=== PATIENT | female | born 1975 | race Hispanic/Latino ===

== ENCOUNTER 2016-11-03 06:07 | Day surgery (SDC) | payer OTHER ==
[2016-11-03] VITALS (13 sets, daily range): BP systolic 109–133; BP diastolic 64–94; PULSE 91–109; RESP 14–24; O2SAT 93–100
[~2016-11-03] VITALS: Ht 162.6 cm; Wt 95.5 kg
[2016-11-03] MEDS: Lactated Ringer's 1,000 ML IV SCH ×4 (05:00→23:06)
[2016-11-03] MEDS: Phenazopyridine 97.5 mg Tablet PO SCH ×2 (06:00→06:59)
[~2016-11-03 06:07] MED LIST: CeFAZolin Inj 2 GM in IV Premix 1 EACH IV SCH; LISI10TA PO; NITR100 PO
[2016-11-03] MEDS ORDERED: Dexamethasone 4 mg/mL Inj ONE (06:08)
[2016-11-03] MEDS ORDERED: Ondansetron 2 mg/mL 2 mL Inj ONE (06:08)
[2016-11-03] MEDS ORDERED: Propofol 10,000 mCg/mL 20 mL Inj ONE (06:08)
[2016-11-03] MEDS ORDERED: MetoCLOpramide 5 mg/mL 2 mL Inj ONE (06:08)
[2016-11-03] MEDS ORDERED: Rocuronium 10 mg/mL 5 mL Inj ONE (06:08)
[2016-11-03] MEDS ORDERED: Morphine PF 1 mg/mL 10 mL Inj ONE (06:08)
[2016-11-03] MEDS ORDERED: Bupiv-Spinal 0.75%/Dex 8.25% 2 mL Inj ONE (06:08)
[2016-11-03] MEDS ORDERED: Lactated Ringer's 1,000 ML IV ONE (06:46)
--- NOTE | 2016-11-03 07:16 | PCM.HPANE ---
Patient Data Surgeon Admitting Provider: Attending Provider:Ruben Butler MD Primary Care Physician:[facility] Other Provider:Konrad Reveles Anesthesia Reason for Visit Incomplete Uterovaginal Prolapse, Cystocele Ht/WT & BMI Height (Feet): 5 Height (Inches): 4.00 Weight (Kilograms): 95.254 Body Mass Index 35.00 Allergies Coded Allergies: No Known Allergies (Unverified , 11/02/16) Past Anesthesia History Anesthesia History: Denies:: Anesthesia Reactions Diabetes History Hx Diabetes?: No MRSA MRSA: No Medications Hypertension Medication: Yes Home Meds Incl Beta Dusty: No Reported Medications Lisinopril 10 Mg [id number] Mg PO DAILY 30 Days Ref 0 11/02/16 Discontinued Reported Medications Nitrofurantoin Monohyd/M-Cryst (MacroBid)100 Mg [id number] Mg PO HS Ref 0 X 2 DAYS 11/02/16 History History of ENT Problems?: No Hx of Heart Problems?: No Cardiovascular History: Positive for:: Hypertension Denies:: Heart Murmur Hx of Respiratory Problem?: Yes Respiratory History: Positive for:: Cough (SLIGHT) Dyspnea (INTERMITTANT) Denies:: Use of C-PAP Machine Hx Neurologic Problems?: Yes Hx of GI Problems?: No Hx of Problems?: Yes Female Hx: Denies:: Currently Skin History: Denies:: History Skin Disorders? Pressure Ulcers Hx Musculoskeletal Problems?: No Hx of Psycho/Social Problems?: No Hx Surgeries?: Yes (BTL,C/S) Hx Any Other Health Problems?: Yes Other History: Denies:: Cancer Endocrine Disease Hospitalization Thyroid Disease Hx Diabetes: No Hx Alcohol Use: Yes (RARELY)Have You Smoked inLast 12 mo: No Stop/Bang Treated for Sleep Apnea?: No Do You Have a CPAP Machine?: No S-Snoring: Do You Snore Loudly: No T-Tired: feel tired, fatigued: Yes O-Obsered: Observed not breath: No P-Blood Pressure: treated: Yes B- Body Mass Index > 35 kg/m2: Yes A- Age over 50: No N- Neck Large Circumference: No G- Gender Male: No JOVI Total Score: 3 JOVI Risk Assessment: Low Risk, <3 Yes Risk Assessment Category Category 1A: Patient has history of documented sleep apnea, and HAS NOT received any narcotic, sedative or anesthesia administration during this stay. Category 1B: Patient has history of documented sleep apnea, and HAS received any narcotic , sedative or anesthesia administration during this stay Category 2: Patient has SUSPECTED Obstructive Sleep Apnea, and HAS received any narcotic , sedative or anesthesia administration during this stay. Category 3: Patient has SUSPECTED Obstructive Sleep Apnea and HAS NOT received narcotic, sedative or anesthesia administration during this stay. Category 4: Outpatient in Procedural Areas with known sleep apnea or who screen positive for High Risk via the STOP/BANG questionnaire. Exam Exam Vital Signs Vital Signs Date Time Temp Pulse Resp B/P Pulse Ox O2 Delivery O2 Flow Rate FiO2 11/03/16 06:48 36.2 91 14 133/94 98 Room Air General Appearance: Oriented X3 HEENT/AIRWAY: MP 2 Lungs: Normal Air Movement Heart: Regular Rate/Rhythm Meds/Labs/Diagnostics Admission Meds Current Medications Phenazopyridine HCl 2 tab 2 tab PREOP PO Last administered on 11/03/16 06:59; Start 11/03/16 at 06:00; Stop 11/03/16 at 17:00 Lactated Ringer's (Lr) 1,000 ml @ ud STK-MED ONCE IV Last administered on 11/03 06:46; Start 11/03/16 at 06:46; Stop 11/03/16 at 06:47; Status DC Plan Impression Patient chart reviewed, patient interviewed and anesthestic plan with risks, benefits, and alternatives discussed, and informed consent obtained. NPO Status: 11/02@1600, WATER W RX ASA Physical Status: ASA2 Mod Systemic Disease Anesthetic Plan: GA, SAB Bene/Risks/Altern/Consents: Yes HP Complete Prior to Induction: Yes Bi Lu MD Nov 03, 2016 07:16
[2016-11-03] MEDS ORDERED: Lactated Ringer's 500 ML IV PRN (07:43)
[2016-11-03] MEDS ORDERED: Lactated Ringer's 1,000 ML IV SCH (07:43)
[2016-11-03] MEDS ORDERED: Labetalol 5 mg/mL 4 mL Inj IV PRN (07:45)
[2016-11-03] MEDS ORDERED: Phenylephrine 10,000 mCg/mL Inj IVPUSH PRN (07:45)
[2016-11-03] MEDS ORDERED: EPHEDrine Sulfate 50 mg/mL Inj IVPUSH PRN (07:45)
[2016-11-03] MEDS ORDERED: Dexamethasone 4 mg/mL Inj IVPUSH PRN (07:45)
[2016-11-03] MEDS ORDERED: HYDROmorphone 1 mg/mL Inj IVPUSH PRN (07:45)
[2016-11-03] MEDS ORDERED: MetoCLOpramide 5 mg/mL 2 mL Inj IVPUSH PRN ×2 (07:45→12:35)
[2016-11-03] MEDS ORDERED: Ondansetron 2 mg/mL 2 mL Inj IVPUSH PRN ×2 (07:45→12:35)
[2016-11-03] MEDS ORDERED: fentaNYL-PF 50 mCg/mL 2 mL Inj IVPUSH PRN (07:45)
[2016-11-03] MEDS ORDERED: Lidocaine 1%/Epi 1:100,000 30 mL MDV INFIL ONE (08:00)
[2016-11-03] MEDS ORDERED: Sodium Chloride LOK Flush 10 mL Syringe XX ONE ×2 (08:00→09:35)
[2016-11-03] MEDS ORDERED: Gentamicin 40 mg/mL 2 mL Inj IRRIGATION ONE ×2 (08:15→09:35)
[2016-11-03] MEDS ORDERED: Lidocaine 1%-Epi 1:100,000 20 mL Inj INFILTRATE ONE (09:34)
[2016-11-03] MEDS ORDERED: Alum-Mag Hydrox-Simeth 30 mL Suspension PO PRN (12:35)
--- NOTE | 2016-11-03 13:48 | PCM.ANEP1 ---
Post Anesthesia Phase 1 PACU Phase 1 Assessment Vital Signs Vital Signs Date Time Temp Pulse Resp B/P Pulse Ox O2 Delivery O2 Flow Rate FiO2 11/03/16 13:28 103 24 128/89 94 Room Air 11/03/16 13:24 97 17 121/77 97 Nasal Cannula 3 11/03/16 13:13 103 15 120/71 97 Nasal Cannula 3 11/03/16 13:02 101 15 109/85 97 Nasal Cannula 4 11/03/16 12:55 102 24 125/83 95 Nasal Cannula 4 11/03/16 12:51 18 94 11/03/16 12:50 104 18 119/76 93 Room Air 11/03/16 12:40 109 19 111/64 100 Simple Mask 10 11/03/16 12:35 101 14 110/70 100 Simple Mask 10 11/03/16 12:31 36.1 100 20 125/66 99 Simple Mask 10 11/03/16 06:48 36.2 91 14 133/94 98 Room Air Anesthetic Administered: GA Level of Alertness: Awake, talking Pain: No Nausea or Vomiting: No Airway Device: Oralpharangeal Airway Oxygen Delivery: Room Air Lungs: Normal Air Movement Dermatome Level: L5,S1 (Foot) Bi Lu MD Nov 03, 2016 13:48
--- NOTE | 2016-11-03 13:48 | PCM.ANEP2 ---
Post Anesthesia Evaluation ASA/CMS Post Anesthesia VS in Patient's Normal Range?: Yes Resp Stable; Airway Patent?: Yes CV Function & Hydration Stable: Yes Mental Status Recovered?: Yes Pain control Satisfactory?: Yes N/V Control Satisfactory?: Yes Bi Lu MD Nov 03, 2016 13:48
--- NOTE | 2016-11-03 14:15 | NUR ---
Post op Pt comes on gurney and moves self to bed well. IV left wrist patent. Charlton patent and draining to gravity oranges urine. A&OX4. Steri strips and bandaids bilateral groin, vag packing. Slight nausea. Numbness in feet. Spinal block given for Sx. Care continues
[2016-11-03] MEDS: Acetaminophen IV 1,000 MG in IV Premix 1 EACH IV SCH ×2 (15:27→20:52)
--- NOTE | 2016-11-03 19:30 | NUR ---
N/V / Pain Nausea and vomiting off and on X 2. Pt states that it just hits her. Zofran didn't seem to work. Reglan seemed to help some. Decreased diet back to Liquids only. Pain low abd. APAP works for a few hrs. Morphine 1mg given which worked well as well. Care continues
--- NOTE | 2016-11-03 22:31 | PCM.SURGOP ---
Surgical Operative Report Date of Service: Nov 03, 2016 Pre Operative Diagnosis 1. Uterovaginal prolapse, incomplete N81.2 (618.2): 2. Cystocele, midline N81.11 (618.01): 3. Rectocele N81.6 (618.04): 4. Urodynamic Stress incontinence in female N39.3 Post Operative Diagnosis 1. POPQ Stage 2 Uterine prolapse and enterocele 2. POPQ Stage 2 Cystocele 3. POPQ Stage 2 Rectocele 4. Urodynamic Stress incontinence in female Procedure: 1. vaginal hysterectomy with bilateral salpingectomy 2. anterior repair with Xenform graft augmentation 3. posterior repair 4. high uterosacral ligament vaginal vault suspension and enterocele repair. 5. TVTobturator sling and cystoscopy Surgeon and Skid Machine Operator: Surgeon: Ruben Butler MD Assistants: Jeanette Duron Indication for Procedure Ivana, who is a pleasant 41 year-old female has the following assessment: 1. Uterovaginal prolapse, incomplete N81.2 (618.2): 2. Cystocele, midline N81.11 (618.01): 3. Rectocele N81.6 (618.04): 4. Urodynamic Stress incontinence in female N39.3 The patient is a candidate for surgical prolapse management in the form of:. vaginal hysterectomy. with bilateral salpingectomy anterior repair. and posterior repair with possible biologic graft augmentation. high uterosacral ligament vaginal vault suspension. enterocele repair. As stress incontinence is noted on Urodynamic testing she should receive a TVTobturator sling. The patient signed the consent form. She agreed with the risks, benefits, and alternatives to surgery. The risks included but not limited to recurrence or persistence of prolapse, recurrence of persistence of incontinence, development of voiding dysfunction, development of urinary urgency, urgency incontinence, frequency, and need for intermittent self-catheterization or prolonged indwelling catheterization, injury to other organs including bladder, bowel, nerves or blood vessels. Need for blood transfusion, need for temporary colostomy or urinary stenting. Development of vaginal scarring, dyspareunia, defecatory dysfunction, recurring pain, hematoma formation, urinary tract infection, cellulitis, necrotizing fascitis, and medical risks including myocardial infarction, stroke or VTE. She also understood the FDA warnings associated with the use of vaginal mesh (dysparunia, vaginal erosion, erosion into bowel/bladder/urethra, requiring further surgery to correct these complications). The patient understood the risks and benefits and consented to surgery..We will keep you informed of any further developments. Findings: see dictation Procedure Details SURGICAL TECHNIQUE: The patient was brought to the operating room. She was placed under general anesthesia. She was positioned with legs in Yellowfin stirrups. She was prepped and draped in the normal fashion for vaginal surgery. She was given a dose of IV ancef intraoperatively. She received 200 mg pyridium orally 30 min prior to surgery. 1. Vaginal Hysterectomy and bilateral salpingectomy: Lidocaine 0.5% with 1:200,000 of epinephrine was infiltrated pericervically. The cervix descended to the level of the hymen (POPQ stage 2). A pericervical incision was made with cautery. Anteriorly, the bladder was sharply dissected off the cervix. Posteriorly, the cul de sac was entered with sharp dissection. The bowels were packed with a mini-laparotomy sponge. The uterosacral ligaments were bilaterally clamped, divided and then tied in a transfixion fashion with 0- vicryl suture. Anteriorly, the Uterovesical peritoneum was entered with sharp dissection and the bladder was retracted upward with a right-angle retractor. The uterine vessels were then coagulated, and ligated using the Ligasure Impact System. The uterine body was delivered posteriorly. The utero-ovarian ligaments were clamped bilaterally, coagulated, ligated and then tied using 0-Vicryl suture. The tubes and ovaries appeared normal. Evidence of bilateral tubal ligation was noted. She agreed to have a bilateral salpingectomy. The tubes were clamped at their base, coagulated with Ligasure and excised. The base was tied with 0- vicryl suture. The uterus/cervix, and tubes were sent to pathology. It was noted that the pedicles were hemostatic. 2-0 vicryl suture was used to achieve hemostasis along the cuff. 2. High uterosacral ligament vaginal vault suspension, cystoscopy and enterocele repair: Mini laparotomy sponges were packed to retract the bowel upwards. A pair of Allis clamps were placed along the intraperitoneal portions of the vagina at the 5 and 7 o'clock positions. Tension along these Allis clamps allowed for identification of the uterosacral ligaments bilaterally. A pair of 0 Vicryl sutures were passed around the uterosacral ligaments of the level of the ischial spine bilaterally, totalling 4. Cystoscopy was performed. Tension was applied along the vault sutures and brisk spillage of pyridium-stained urine was noted briskly effluxing from both ureteric orifices. Next two 3-0 Prolene sutures were placed transversely through the cul-de-sac peritoneum. This was performed while using a gloved finger in the rectum as to avoid penetrating the underlying rectal mucosa. Tying these sutures obliterated the enterocele. 3. Anterior colporrhaphy with Xenform graft augmentation: Lidocaine 0.5% with 1 /490803 epinephrine was infiltrated along the anterior vaginal wall mucosa. A midline vertical incision was made through the anterior vaginal wall. The vaginal wall was dissected off the underlying pubocervical and pubovesical fascia. The dissection was extended laterally beyond the ischial pubic rami. It was noted that the pubocervical and pubovesical fascial tissues were deficient and thin. The cystocele was plicated in 2 layers, the first layer with 2-0 Vicryl suture in interrupted fashion, the second layer with 2-0 Tycron suture in an interrupted fashion. A trapezoidal piece of Xenform graft was then incorporated atop the plicated area far laterally. The graft was secured to the obturator internus membrane. At the level of the bladder neck, an upside down triangular piece of graft was excised so that there was no over-support created along the level of the bladder neck. Apically , the graft was passed through the proximal uterosacral ligament sutures. A mild amount of excess anterior vaginal mucosa was excised. After cauterization of bleeding near the distal uterosacral ligaments, a piece of gelfoam was placed in the area to ensure persistent hemostasis. The vault suspension sutures were then passed through the planned apex of the vagina. Two were placed through the anterior apex and the other two, through the posterior apex. The vagina was then reapproximated using 3-0 Vicryl suture in a running-locked fashion. The high uterosacral ligament vaginal vault suspension sutures were tied and this elevated the apex of the vagina high up into the hollow of the sacrum. 4. Posterior colpoperineorrhaphy: Lidocaine 0.5% with 1:200,000 of epinephrine was infiltrated along the perineum and posterior vaginal wall mucosa. A thin wedge of perineum was excised with a scalpel and a midline vertical incision was made through the posterior vaginal wall. The vaginal mucosa was dissected off the underlying rectovaginal tissues. It was noted the fascial tissues were sufficient. The rectocele was plicated in one layer using 2- 0 Vicryl suture in an interrupted fashion. Due to some fecal leakage, she was given a dose of IV gentamicin 120 mg. A mild amount of excess posterior vaginal mucosa was excised. The perineum was reapproximated using 2-0 Vicryl suture in an interrupted fashion. The skin was reapproximated using 3-0 Vicryl suture in a subcuticular fashion. 5. TVT-Obturator sling and cystoscopy. Lidocaine 0.5% with 1/148443 epinephrine was infiltrated along the anterior vaginal wall mucosa at the level of the mid urethra. Midline vertical incision was made at that level, 2 periurethral tunnels were created with Metzenbaum scissors. Two stab incisions were created at the skin at the groin at a level 2 cm superior to the external urethral meatus and 2 cm lateral to the fold created between the vulva and thigh. Villegas catheter had already been inserted. A butterfly guide was inserted into the right periurethral tunnel, a curved helical needle was inserted on top of the guide and rotated out to the ipsilateral skin incision. The same procedure was performed on the contralateral side. Next the Villegas catheter was removed. There was no inadvertent penetration of the sling through the vagina, urethra or bladder. In addition, the ureteric orifices were noted bilaterally to be functional by the brisk spillage of pyridium-stained urine. The bladder appeared normal. The plastic sheaths of the sling were removed. The bladder was filled with sterile water (to a total bladder volume of 300 ml). Using the Crede maneuver, sling tension was appropriately adjusted. Also a large right angle clamp was allowed to easily pass behind the sling so that the sling was placed in a tension-free manner. The sling ends were cut at the level of the skin. The skin was reapproximated using Mastisol, Steri-Strips and band-aids. The vagina was reapproximated using 3-0 Vicryl suture in a running fashion The vagina was packed with Premarin-lubricated packing. An indwelling 16 F villegas catheter was connected to straight drainage. The patient's hips were periodically deflexed during the case. There were no complications. The EBL was 350 ml. She received 1600 ml of IV fluid. All sponges and instruments were accounted for. She was taken to the recovery room in stable condition. Complications There were no periprocedural complications identified. Surgical Specimen Removed: Yes Specimen sent to Pathology: Yes Surgical Specimen description: uterus, cervix, tubes Anesthetic Plan: GA, SAB Grafts, Implants: Grafts-See Implant Record, Implants-See Implant Record Output, Estimated Blood Loss: 350 (ml) Blood Administration during eckert: No Drains: None Catheters: Urethral 2 Way Villegas Post Operative Plan overnight observation in bed as she requires a voiding trial in the am copies to: Emilie Rosario MD; Ruben Butler MD; Jeanette Duron William Andre Z MD Nov 03, 2016 22:30
[2016-11-03] MEDS: diphenhydrAMINE 25 mg Capsule PO PRN (23:09)
[2016-11-03] MEDS: oxyCODONE-Acetamin 5-325 mg Tablet PO PRN (23:09)
[2016-11-04 00:15] VITALS: BP 117/73; PULSE 87; RESP 16; O2SAT 97
--- NOTE | 2016-11-04 00:19 | NUR ---
Itchiness Pt stated that she felt "itchy" since surgery and that it was preventing sleep Given 25mg PO benadryl. Pt currently asleep. No itching noted.
[2016-11-04] MEDS: oxyCODONE-Acetamin 5-325 mg Tablet PO PRN ×3 (03:10→11:26)
[2016-11-04] MEDS: diphenhydrAMINE 25 mg Capsule PO PRN (03:10)
[2016-11-04 03:23] VITALS: BP 117/75; PULSE 99; RESP 20; O2SAT 99
[2016-11-04] MEDS: Lactated Ringer's 1,000 ML IV SCH ×2 (04:34→12:34)
[2016-11-04 05:46] LABS: BASOPHILS % (AUTO) 0.1 % (0-3); EOSINOPHILS % (AUTO) 0.1 % (0-5); MONOCYTES % (AUTO) 5.4 % (4-12); Mean Corpuscular Hemoglobin 28.9 pg (27.0-35.0); Mean Corpuscular Volume 89.8 fL (81-100); NEUTROPHILS % (AUTO) 67.1 % (40-74); Platelet Count 298 bil/L (150-400)
[2016-11-04 07:02] VITALS: BP 132/85; PULSE 96; RESP 20; O2SAT 98
[2016-11-04] MEDS ORDERED: Heparin 5,000 Unit/mL Inj SUBQ SCH (08:30)
[2016-11-04] MEDS ORDERED: Senna-Docusate 8.6-50 mg Tablet PO SCH (08:30)
--- NOTE | 2016-11-04 12:04 | PCM.PNSURG ---
Subjective Date of Service: Nov 04, 2016 Date of Service: Nov 04, 2016 Visit Information: Reason for Visit Incomplete Uterovaginal Prolapse, Cystocele Surgery/Surgery Date VAG HYSTERECTOMY 11/03/16 Post-Op Day # 1 Subjective: AVSS Vomited last pm; tolerating diet today ambulatory pain - using oral analgesia Hct 30.8 OR explained Gastrointestinal: Tolerating Oral Feedings Pain Management: PO Postop Activity: Ambulating Independently Objective Vital Sign- Last 8 Hours Date Time Temp Pulse Resp B/P Pulse Ox O2 Delivery O2 Flow Rate FiO2 11/04/16 07:02 36.8 96 20 132/85 98 Room Air Intake and Output- Last 8 Hour 11/04/16 Cumulative From/Thru 06:59 11/02/16 11:52 - 11/04/16 04:42 Intake Total 1550 ml 4892 ml Output Total 1200 ml 3860 ml Balance 350 ml 1032 ml Intake Oral 400 ml 1440 ml IV Total 1150 ml 3452 ml Output Urine Total 1200 ml 2260 ml Emesis 900 ml Estimated Blood Loss 700 ml General: Alert, Oriented X3, Cooperative Lungs: Clear to Auscultation Abdomen: Soft Result Diagram: 11/04/16 0452 Assessment & Plan Impression POD#1 stable mild iron-deficiency anemia secondary to blood loss Problems: Plan voiding trial d/c home later today once stable Iron tablets - start once BM's have started VTE Prophylaxis: Sub-Q Heparin (Unfractionated) Resuscitation Status: CPR: Attempt Resuscitation copies to: Ruben Butler MD, William Andre Z MD Nov 04, 2016 12:04
--- NOTE | 2016-11-04 12:06 | PCM.DIGYN ---
Surgical Discharge Instruction Dates of Hospitalization Date of Hospital Admission 11/03/16 outpatient overnight stay in bed Providers Admitting Physician: [facility] Attending Physician: Ruben Butler MD Diagnosis at Time of Discharge Diagnosis at time of discharge 1. POPQ Stage 2 Uterine prolapse and enterocele 2. POPQ Stage 2 Cystocele 3. POPQ Stage 2 Rectocele 4. Urodynamic Stress incontinence in female 5. Iron deficiency anemia secondary to blood loss (Hct 30.8) Post-operative diagnosis 1. POPQ Stage 2 Uterine prolapse and enterocele 2. POPQ Stage 2 Cystocele 3. POPQ Stage 2 Rectocele 4. Urodynamic Stress incontinence in female Problems: Activity Discharge Activity-General: Restrict lifting to no greater than (10 lbs for 6 wk) Dressing and Incisional Care Dressing Care: Allow Steri Stripes to fall off Hygiene: May shower Additional Instructions Discharge Instructions 1. Start iron pills once you have good bowel movements 2. Have patient see the family doctor to determine if she should be on Lisinopril regularily or not; she has not been using it as directed Follow Up Plan Follow-up appointment: Weeks (2; also f/u in [address] Butler's MA if home with a villegas catheter) Call your provider for: Fever, Chills, Shortness of breath, Vomitting, Drainage at incision, Heavy vaginal bleeding, Wound redness, Increasing pain Ruben Butler MD Nov 04, 2016 12:06
[2016-11-04 12:25] VITALS: BP 147/95; PULSE 76; RESP 20; O2SAT 97
--- NOTE | 2016-11-04 12:36 | NUR ---
Void Wright Void trial followed. Pt unable to void after 45minutes. Charlton placed back in with no issues. 500 out immediately. Care continues. Plan to educate and discharge.
--- NOTE | 2016-11-04 15:04 | NUR ---
DC Pt leaves with mother to home. All Charlton plugs and collection bag as well as education reviewed and per pt she and her mother understand all instructions. All belongings with pt, Rx with patient. Pt understands to call Butler's office or hospital if she has any questions that come up. Walked to mothers car with staff. Car discontinues
--- NOTE | 2016-11-05 11:37 | PATH ---
SURGICAL PATHOLOGY Attending Physician:Ruben Butler, CASE STATUS: Signed Out PATIENT NAME: SANJEEV SOFIA PID: [id number] : 1975 DATE COLLECTED:11/03/2016 20:20 SPECIMEN: 1: Uterus +/- tubes/ovaries, except neoplastic, prolapse 2: Fallopian Tube, Biopsy CLINICAL HISTORY: UTERINE PROLAPSE, CYSTOCELE, RECTOCELE, STRESS INCONTINENCE 1). UTERUS AND RIGHT FALLOPIAN TUBE 2). LEFT FALLOPIAN TUBE FINAL DIAGNOSIS: 1.UTERUS AND RIGHT FALLOPIAN TUBE (CLINICAL UTERINE PROLAPSE): PROLIFERATIVE ENDOMETRIUM, NEGATIVE FOR ATYPIA. UTERINE WEIGHT: 91 GRAMS. FALLOPIAN TUBE UNREMARKABLE. 2.SEGMENT OF LEFT FALLOPIAN TUBE: CHANGES CONSISTENT WITH MILD HYDROSALPINX, NEGATIVE FOR ATYPIA. ICD10 CODE N81.4 GROSS DESCRIPTION: The specimens are received in formalin, labeled with the patient's name, and sublabeled as the following: (1) uterus & right tube; (2) left fallopian tube. (1) The specimen consists of a uterus (91 g, 4.4 cm AP, 8.8 cm SI, 5.2 cm ML) and a detached fimbriated fallopian tube (length-4.5 cm, diameter-0.5 cm). The ovaries and segment of fallopian tube are absent. The cervix (2.5 cm AP, 3.5 cm ML) has a vaginal cuff (up to 2.5 cm in depth), transverse os and patent endocervical canal. The endometrium (average thickness-0.1 cm) is joel-pink smooth and flat. The myometrium (thickness-1.9 cm) is joel-white and unremarkable. The serosa is joel smooth and shiny. The fallopian tube has joel smooth shiny serosa and a joel unremarkable lumen. Section code: (1A-1B) anterior cervix, bisected and submitted SI; (1C-1D) posterior cervix, bisected and submitted SI; (1E, 1F) anterior endomyometrium; (1G, 1H) posterior endomyometrium; (1I) fallopian tube, serially sectioned, paper sales representative; (1J) fimbria, bivalved, entirely submitted. (2) The specimen consists of a nonfimbriated segment of fallopian tube (length-2.1 cm, diameter-0.7 cm). One end of the segment is blunt. The serosa is joel smooth and shiny. The lumen contains clear joel mucoid material. Section code: (2A) fallopian tube, semi-sections, paper sales representative; (2B) blunt end, bivalved, entirely submitted. 11/04/16 MICRO DESCRIPTION: See diagnosis. ICD-9 CODES: CPT CODES: 1: 97373 2: 22122 Electronically Signed Out Herman Tong MD [facility] Pathology [facility] [address], [place] [address] Technical component performed at [facility], [address], [place], [address]
== END 2016-11-04 15:03 | disposition home or self-care (01) ==
LOC: SAS 06:07 → OSC 14:25 → SAS 11-04 15:03
PROVIDERS: ATTEND Obstetrics & Gynecology
DX: N81.2 Incomplete uterovaginal prolapse (principal); N81.11 Cystocele, midline; N81.6 Rectocele; N39.3 Stress incontinence (female) (male); I10 Essential (primary) hypertension; R05 Cough; Z79.899 Other long term (current) drug therapy